=== PATIENT | female | born 1995 | race Caucasian/White ===

== ENCOUNTER 2018-10-06 02:13 | Emergency (ER) | payer OTHER ==
[~2018-10-06] VITALS: Ht 157.5 cm; Wt 68.0 kg
--- NOTE | 2018-10-06 02:13 | NUR ---
PT BIB [facility], PREBOOK. TAKEN TO CHAIR E
[2018-10-06 02:15] VITALS: BP 115/79
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
--- NOTE | 2018-10-06 02:28 | NUR ---
PATIENT MEDICALLY CLEARED AND RELEASED IN CUSTODY IN STABLE CONDITION. ORIGINAL PRE-BOOK FORM AND COPY GIVEN TO OFFICER. DISCHARGE INSTRUCTIONS PROVIDED TO OFFICER. INSTRUCTIONS EXPLAINED TO PATIENT. PT ADVISED SHE MAY FEEL MORE SORE IN THE NEXT COMING UP DAYS.
== END 2018-10-06 02:28 ==
LOC: MED 02:13
DX: Z04.1 Encounter for examination and observation following transport accident (principal); V89.2XXA Person injured in unspecified motor-vehicle accident, traffic, initial encounter; Y93.89 Activity, other specified; Y92.89 Other specified places as the place of occurrence of the external cause; Y99.8 Other external cause status
CPT/HCPCS: 99283